=== PATIENT | female | born 1990 | race Caucasian/White ===

== ENCOUNTER 2016-04-21 15:01 | Emergency (ER) | payer OTHER ==
[2016-04-21 15:34] VITALS: BP 132/96
--- NOTE | 2016-04-21 16:12 | UC ---
Throat Pain/Nasal Last HPI - HPI Summary HPI Summary: Worsening sinus pain has a strip of pain across face and eyes - History of Current Complaint Chief Complaint: UCGeneralIllness Stated Complaint: SINUS PAIN Time Seen by Provider: 04/21/16 16:06 Hx Obtained From: Patient Hx Last Menstrual Period: on control ?: No Onset/Duration: Gradual Onset, Lasting Days - 3+, Still Present Severity: Moderate Cough: None Associated Signs & Symptoms: Positive: Sinus Discomfort. Negative: Dysphagia, FB Sensation, Drooling, Fever, Vomiting, Rash - Allergies/Home Medications Allergies/Adverse Reactions: Allergies Allergy/AdvReac Type Severity Reaction Status Date / Time No Known Allergies Allergy Verified 04/21/16 15:27 Home Medications: Home Medications Levonorgestrel (IUD) (NF) [Mirena (NF)] 04/21/16 [History] PMH/Surg Hx/FS Hx/Imm Hx Previously Healthy: No Endocrine History Of: Reports: Thyroid Disease - not medicated, Hypothyroidism Psychological History Of: Reports: Post Traumatic Stress Disorder - Surgical History Surgical History: Yes Surgery Procedure, Year, and Place: TONSILLECTOMY. [place] teeth - Family History Known Family History: Positive: None Negative: Blood Disorder Family History: Denies cardio vascular disease in family lineage - Social History Occupation: Employed Full-time Lives: With Family Alcohol Use: Occasionally Substance Use Type: None Smoking Status (MU): Current Every Day Smoker Type: Cigarettes Amount Used/How Often: 1/2 ppd Cessation Counseling: Patient Advised to Stop Review of Systems Constitutional: Chills, Fatigue Skin: Negative Eyes: Negative ENT: Negative Respiratory: Negative Cardiovascular: Negative Gastrointestinal: Negative Genitourinary: Negative Motor: Negative Neurovascular: Negative Musculoskeletal: Negative Neurological: Headache Psychological: Negative All Other Systems Reviewed And Are Negative: Yes Physical Exam Triage Information Reviewed: Yes Appearance: Well-Nourished, Ill-Appearing - mild, Pain Distress - mild Vital Signs: Initial Vital Signs Temp 98.7 F 04/21/16 15:29 Pulse 86 04/21/16 15:29 Resp 18 04/21/16 15:29 BP 132/96 04/21/16 15:29 Pulse Ox 100 04/21/16 15:29 Vital Signs Reviewed: Yes Eye Exam: Normal Eyes: Positive: Conjunctiva Clear ENT Exam: Normal ENT: Positive: Normal ENT inspection, Hearing grossly normal, Pharynx normal, TMs normal. Negative: Nasal congestion, Nasal drainage, Tonsillar swelling, Tonsillar exudate, Trismus, Muffled/hoarse voice Dental Exam: Normal Neck exam: Normal Neck: Positive: Supple, Nontender, No Lymphadenopathy Respiratory Exam: Normal Respiratory: Positive: Chest non-tender, Lungs clear, Normal breath sounds, No respiratory distress, No accessory muscle use Cardiovascular Exam: Normal Cardiovascular: Positive: RRR, No Murmur, Pulses Normal, Brisk Capillary Refill Musculoskeletal Exam: Normal Musculoskeletal: Positive: Strength Intact, ROM Intact, No Edema Neurological Exam: Normal Neurological: Positive: Alert, Muscle Tone Normal Psychological Exam: Normal Skin Exam: Normal Throat Pain/Nasal Course/Dx - Course Assessment/Plan: medrol dose pack, flonase and if symptoms worsen or fail to improve may start antibiodic, increase fluids follow with pcp - Differential Dx/Diagnosis Differential Diagnosis/HQI/PQRI: Influenza, Laryngitis, Pharyngitis, Sinusitis, URI Provider Diagnoses: Sinusitis Discharge - Discharge Plan Condition: Stable Disposition: HOME Prescriptions: Azithromycin TAB* [Zithromax TAB (Z-LAURA) 250 mg #6 tabs] 2 tab PO .TODAY, THEN 1 DAILY #1 laura Fluticasone NASAL SPRAY 50MCG* [Flonase NASAL SPRAY 50MCG*] 2 spray BOTH NARES DAILY #1 btl Methylprednisolone [Medrol Dosepak 4 MG*] 1 packet PO .SEE LAURA INSTRUCTION #1 pkt Patient Education Materials: How to Stop Smoking (ED), Sinusitis (ED), How to Use Nasal [place] (ED) Referrals: Eliu Plascencia NP [Primary Care Provider] - If Needed
== END 2016-04-21 16:20 | disposition home or self-care (01) ==
LOC: UCEAST 15:01
DX: J32.9 Chronic sinusitis, unspecified (principal); F17.210 Nicotine dependence, cigarettes, uncomplicated
CPT/HCPCS: 99212; G0463

== ENCOUNTER 2016-05-26 09:55 | Emergency (ER) | payer OTHER ==
[2016-05-26 10:41] VITALS: BP 110/67
[2016-05-26] MEDS ORDERED: Ondansetron ODT TAB* 4 MG PO ONE (10:49)
--- NOTE | 2016-05-26 10:59 | UC ---
Abdominal Pain Female HPI - HPI Summary HPI Summary: 25 yo female with a three day hx of n/v/d no f/c crampy abd pain no vomiting x 36 hours severe nausea diarrhea 10-15 x day - History of Current Complaint Chief Complaint: UC Stated Complaint: VOMITING, AND DIARRHEA Time Seen by Provider: 05/26/16 10:40 Hx Obtained From: Patient Hx Last Menstrual Period: IUD Onset/Duration: Gradual Onset, Lasting Days Severity Initially: Moderate Severity Currently: Moderate Pain Intensity: 3 Pain Scale Used: 0-10 Numeric Location: Diffuse Character: Aching Aggravating Factor(s): Nothing Alleviating Factor(s): Nothing Associated Signs and Symptoms: Positive: Nausea, Vomiting, Diarrhea Allergies/Adverse Reactions: Allergies Allergy/AdvReac Type Severity Reaction Status Date / Time No Known Allergies Allergy Verified 04/21/16 15:27 Home Medications: Home Medications Bismuth Subsalicylate [Pepto-Bismol Max Strength] 525 mg PO 05/26/16 [History] PMH/Surg Hx/FS Hx/Imm Hx Previously Healthy: Yes Endocrine History Of: Reports: Thyroid Disease - not medicated, Hypothyroidism Psychological History Of: Reports: Post Traumatic Stress Disorder - Surgical History Surgical History: Yes Surgery Procedure, Year, and Place: TONSILLECTOMY. [place] teeth - Family History Known Family History: Positive: Hypertension Negative: Blood Disorder - Social History Alcohol Use: Occasionally Substance Use Type: None Smoking Status (MU): Light Every Day Tobacco Smoker Type: Cigarettes Amount Used/How Often: 1/2 ppd - Immunization History Most Recent Influenza Vaccination: none Review of Systems Constitutional: Negative Skin: Negative Eyes: Negative ENT: Negative Respiratory: Negative Cardiovascular: Negative Gastrointestinal: Abdominal Pain, Vomiting, Diarrhea Genitourinary: Negative Motor: Negative Neurovascular: Negative Musculoskeletal: Negative Neurological: Negative Psychological: Negative All Other Systems Reviewed And Are Negative: Yes Physical Exam Triage Information Reviewed: Yes Appearance: Well-Appearing, No Pain Distress Vital Signs: Initial Vital Signs Temp 97.9 F 05/26/16 10:36 Pulse 67 05/26/16 10:36 Resp 16 05/26/16 10:36 BP 110/67 05/26/16 10:36 Pulse Ox 100 05/26/16 10:36 Vital Signs Reviewed: Yes Eyes: Positive: Conjunctiva Clear ENT: Positive: Normal ENT inspection, Pharynx normal. Negative: Pharyngeal erythema, Nasal congestion, Nasal drainage, Trismus, Muffled/hoarse voice Neck: Positive: Supple, Nontender Respiratory: Positive: Lungs clear, Normal breath sounds, No respiratory distress Cardiovascular: Positive: RRR, No Murmur Abdomen Description: Negative: Nontender - diffuse mild tenderness Musculoskeletal: Positive: ROM Intact, No Edema Neurological: Positive: Alert Psychological Exam: Normal Skin Exam: Normal Abd Pain Female Course/Dx - Differential Dx/Diagnosis Provider Diagnoses: acute gastroenteritis Discharge - Discharge Plan Condition: Stable Disposition: HOME Prescriptions: Ondansetron TAB* [Zofran Tab*] 4 mg PO Q6H PRN #10 tab PRN Reason: Nausea Patient Education Materials: Gastroenteritis (ED) Referrals: Eliu Plascencia, [employer] MANAGER [Primary Care Provider] - 3 Days (if not better) Additional Instructions: bring in stool for studies recheck later this week if not better
== END 2016-05-26 11:00 | disposition home or self-care (01) ==
LOC: UCEAST 09:55
DX: K52.9 Noninfective gastroenteritis and colitis, unspecified (principal); F17.210 Nicotine dependence, cigarettes, uncomplicated
CPT/HCPCS: 99212; A9270-GY; G0463